=== PATIENT | female | born 1985 | race Caucasian/White ===

== ENCOUNTER 2023-01-08 08:13 | Outpatient (CLI) | payer BC | END 2023-01-08 08:14 | disposition home or self-care (01) | LOC: NM 08:13 | PROVIDERS: ATTEND Internal Medicine Endocrinology, Diabetes & Metabolism | DX: E05.80 Other thyrotoxicosis without thyrotoxic crisis or storm (principal); E04.9 Nontoxic goiter, unspecified; R94.8 Abnormal results of function studies of other organs and systems | CPT/HCPCS: 78014; A9516 ==

== ENCOUNTER 2023-06-25 12:34 | Outpatient (CLI) | payer BC ==
[2023-06-25 13:04] LABS: BHCG - Serum Negative (NEGATIVE); Pregs Control Background? CLEAR/WHITE (CLR/WHITE); Pregs Control Bar Appear? YES (CONTROL BAR)
== END 2023-06-25 12:35 | disposition home or self-care (01) ==
LOC: NM 12:34
PROVIDERS: ATTEND Internal Medicine Endocrinology, Diabetes & Metabolism
DX: E05.00 Thyrotoxicosis with diffuse goiter without thyrotoxic crisis or storm (principal)
CPT/HCPCS: 79005; 84703